=== PATIENT | male | born 1955 | race Hispanic/Latino ===

== ENCOUNTER → 2018-10-09 | Outpatient (CLI) | payer OTHER ==
[~2018-10-09] MED LIST: CETI10CA5 PO; IBUP-2070 PO; OMEP20TA25 PO; REGADENOSON 0.4 MG/5 ML PF SYG IVP SCH
== END | disposition home or self-care (01) ==
LOC: SHCH 09:31
PROVIDERS: ATTEND Internal Medicine Cardiovascular Disease
DX: R07.9 Chest pain, unspecified (principal)
CPT/HCPCS: 78452; 93017; 96374; A9500 ×2; J2785

== ENCOUNTER 2020-12-31 17:09 | Observation (INO) | payer OTHER ==
[~2020-12-31] VITALS: Ht 172.7 cm; Wt 85.8 kg
[~2020-12-31 17:09] MED LIST changes: -DIATR MEGLU/DIATRIZOATE SODIUM 30 ML BOTTLE ONE; -IOHEXOL-350 75 ML VIAL IV ONE; -PRAV10TA39 PO; -TRAZ-253 PO
[2020-12-31 17:11] VITALS: BP 105/66
[2020-12-31] MEDS ORDERED: ZOSYN 3.375GM +NS 50ML IV ONE (18:15)
[2020-12-31] MEDS ORDERED: ONDANSETRON 4MG INJ IVP ONE (18:15)
[2020-12-31 18:22] LABS: APPEARANCE,URINE Clear (CLEAR); BILIRUBIN,URINE Negative (NEGATIVE); COLOR,URINE Yellow (YELLOW); GLUCOSE, URINE (UA) Negative (NEGATIVE); KETONES,URINE Negative (NEGATIVE); LEUKOCYTE ESTERASE ,URINE Negative (NEGATIVE); NITRATE,URINE Negative (NEGATIVE); OCCULT BLOOD,URINE Negative (NEGATIVE); PH,URINE 7.5 (5.0-8.0); PROTEIN,URINE Negative (NEGATIVE); UROBILINOGEN,URINE 0.2 mg/dL (0.2-1.0)
[2020-12-31 18:32] VITALS: BP 127/68
[2020-12-31] MEDS ORDERED: 0.9%NACL 50ML 50 ML IV ONE (18:35)
[2020-12-31] MEDS ORDERED: MORPHINE 4 MG SYG IV ONE (18:45)
[2020-12-31] MEDS ORDERED: ACETAMINOPHEN 325 MG TAB PO PRN ×2 (19:30)
[2020-12-31] MEDS ORDERED: ONDANSETRON 4MG INJ IV PRN (19:30)
[2020-12-31] MEDS ORDERED: NITROGLYCERIN 0.4 MG SL TAB SL PRN (19:30)
[2020-12-31 19:35] LABS: PROTHROMBIN TIME 10.9 SEC (9.6-11.6)
[2020-12-31 19:37] LABS: PARTIAL THROMBOPLASTIN TIME 28.5 SEC (26.3-35.5)
[2020-12-31] MEDS ORDERED: 0.9%NACL 1000ML 1,000 ML IV ONE (20:10)
[2020-12-31] MEDS: 0.9%NACL 1000ML 1,000 ML IV SCH (20:11)
[2020-12-31 20:20] LABS: BASOPHILS % (AUTO) 0.2 % (0.0-5.0); EOSINOPHILS % (AUTO) 0.7 % (0.0-8.0); HEMATOCRIT 43.1 % (42-54); LYMPHOCYTES % (AUTO) 13.3 % (21.0-51.0); MEAN CORPUSCULAR HEMOGLOBIN 32.5 pg (27.0-33.0); MEAN CORPUSCULAR HGB CONC 33.6 g/dL (32.0-36.0); MEAN CORPUSCULAR VOLUME 96.6 fL (79-99); MONOCYTES % (AUTO) 7.1 % (3.0-13.0); NEUTROPHILS % (AUTO) 78.4 % (40.0-77.0); PLATELET COUNT (AUTO) 161 K/uL (130-400); RED BLOOD CELL COUNT(AUTO) 4.46 MIL/uL (4.50-6.20); RED CELL DISTRIBUTION WIDTH 12.9 % (11.0-15.5)
[2020-12-31 20:23] VITALS: BP 124/70
[2020-12-31 20:30] LABS: CREATININE 0.9 mg/dL (0.5-1.5); POTASSIUM 3.8 mmol/L (3.5-5.1)
[2020-12-31 20:35] LABS: ALBUMIN 3.9 g/dL (3.5-5.0); BILIRUBIN,TOTAL 1.5 mg/dL (0.2-1.0); TOTAL PROTEIN, SERUM 7.6 g/dL (6.0-8.3)
[2020-12-31] MEDS ORDERED: CEFTRIAXONE 1G VIAL IVP ONE (21:15)
[2020-12-31] MEDS: FAMOTIDINE 20MG VIAL IV SCH (21:41)
[2020-12-31] MEDS ORDERED: METRONIDAZOLE 500MG/100ML BAG 100 ML IVPB ONE (22:00)
[2020-12-31 22:19] VITALS: BP 135/72
[2021-01-01] VITALS (28 sets, daily range): BP systolic 110–157; BP diastolic 48–73
[2021-01-01] MEDS ORDERED: PRAV10TA39 PO (01:23)
[2021-01-01] MEDS ORDERED: TRAZ-253 PO (01:23)
[2021-01-01] MEDS: MORPHINE 2 MG SYG IVP PRN ×2 (03:50→19:53)
[2021-01-01 04:01] LABS: BASOPHILS % (AUTO) 0.4 % (0.0-5.0); EOSINOPHILS % (AUTO) 1.7 % (0.0-8.0); HEMATOCRIT 38.8 % (42-54); LYMPHOCYTES % (AUTO) 19.4 % (21.0-51.0); MEAN CORPUSCULAR HEMOGLOBIN 32.3 pg (27.0-33.0); MEAN CORPUSCULAR VOLUME 94.9 fL (79-99); MONOCYTES % (AUTO) 8.7 % (3.0-13.0); NEUTROPHILS % (AUTO) 69.4 % (40.0-77.0); PLATELET COUNT (AUTO) 136 K/uL (130-400); RED BLOOD CELL COUNT(AUTO) 4.09 MIL/uL (4.50-6.20); RED CELL DISTRIBUTION WIDTH 12.8 % (11.0-15.5); WHITE BLOOD COUNT (AUTO) 7.1 K/uL (4.8-10.8)
[2021-01-01 04:14] LABS: ALBUMIN 3.3 g/dL (3.5-5.0); MAGNESIUM 2.1 mg/dL (1.80-2.40); TOTAL PROTEIN, SERUM 6.5 g/dL (6.0-8.3)
[2021-01-01] MEDS: 0.9%NACL 1000ML 1,000 ML IV SCH ×2 (05:30→19:53)
[2021-01-01] MEDS: FAMOTIDINE 20MG VIAL IV SCH ×2 (08:50→19:53)
[2021-01-01] MEDS: CETIRIZINE HCL 5 MG TABLET PO SCH (08:50)
[2021-01-01] MEDS ORDERED: LIDOCAINE PF 100MG/5ML (2%) SYRINGE 5ML ONE (09:06)
[2021-01-01] MEDS ORDERED: SUCCINYLCHOLINE CHLORIDE 20 MG/ML 10 ML VIAL ONE (09:06)
[2021-01-01] MEDS ORDERED: FENTANYL CITRATE PF 50 MCG/1 ML 2ML VIAL ONE (09:07)
[2021-01-01] MEDS ORDERED: PROPOFOL 10 MG/ML 20ML VIAL IV ONE (09:07)
[2021-01-01] MEDS ORDERED: ROCURONIUM 10MG/1ML SYR 10 MG/ML ML ONE (09:07)
[2021-01-01] MEDS ORDERED: LACTATED RINGERS 1000ML 1,000 ML IV ONE (09:26)
[2021-01-01] MEDS ORDERED: CEFAZOLIN SODIUM 1 GM VIAL ONE (09:29)
[2021-01-01] MEDS ORDERED: BUPIVACAINE/EPI/PF 0.25% 30ML VIAL IJ ONE (09:29)
[2021-01-01] MEDS ORDERED: BUPIVACAINE/PF 0.25% 30ML VIAL IJ ONE (09:31)
[2021-01-01] MEDS ORDERED: LIDOCAINE 1%-EPI 1:100,000 20 ML VIAL IJ ONE (09:31)
[2021-01-01] MEDS ORDERED: ZOSYN 3.375GM+NS 50ML 50 ML IV ONE (09:37)
[2021-01-01] MEDS ORDERED: MIDAZOLAM HCL 1 MG/ML 2ML VIAL ONE (09:42)
[2021-01-01] MEDS ORDERED: 0.9%NACL 50ML IV SCH (09:45)
[2021-01-01] MEDS: PIP/TAZ ZOSYN 3.375G 3.375 GM VIAL IVPB SCH ×2 (09:50→09:55)
[2021-01-01] MEDS ORDERED: KETOROLAC 30MG VIAL (30MG/ML) ONE (10:25)
[2021-01-01] MEDS ORDERED: NEOSTIGMINE 5MG/5ML SYR IV ONE (10:25)
[2021-01-01] MEDS ORDERED: GLYCOPYRROLATE 1 MG/5 ML SYRINGE ONE (10:25)
[2021-01-01] MEDS ORDERED: MEPERIDINE-PF 25 MG/ML SYG ONE (10:40)
[2021-01-01] MEDS ORDERED: ONDANSETRON 4MG INJ ONE (10:40)
[2021-01-01] MEDS: CEFTRIAXONE 1G VIAL IVP SCH (12:04)
[2021-01-01] MEDS ORDERED: OXYCODONE/ACETAMIN 5/325MG TAB PO PRN ×2 (15:00)
[2021-01-01] MEDS ORDERED: 0.9%NACL 50ML 50 ML IV SCH (15:00)
[2021-01-01 20:47] LABS: APPEARANCE,URINE Clear (CLEAR); BILIRUBIN,URINE Negative (NEGATIVE); COLOR,URINE Yellow (YELLOW); GLUCOSE, URINE (UA) Negative (NEGATIVE); KETONES,URINE Trace mg/dL (NEGATIVE); LEUKOCYTE ESTERASE ,URINE Negative (NEGATIVE); NITRATE,URINE Negative (NEGATIVE); OCCULT BLOOD,URINE Negative (NEGATIVE); PH,URINE 5.5 (5.0-8.0); PROTEIN,URINE Negative (NEGATIVE)
[2021-01-01] MEDS ORDERED: SIMVASTATIN 10 MG TABLET PO SCH (21:00)
[2021-01-01] MEDS: 0.9%NACL 50ML 50 ML IV SCH (22:12)
[2021-01-01] MEDS: ZOSYN 3.375GM +NS 50ML IV SCH (22:12)
[2021-01-02 03:55] VITALS: BP 111/62
[2021-01-02 04:31] LABS: BASOPHILS % (AUTO) 0.3 % (0.0-5.0); EOSINOPHILS % (AUTO) 2.9 % (0.0-8.0); HEMATOCRIT 37.3 % (42-54); LYMPHOCYTES % (AUTO) 19.2 % (21.0-51.0); MEAN CORPUSCULAR HEMOGLOBIN 32.7 pg (27.0-33.0); MEAN CORPUSCULAR HGB CONC 33.2 g/dL (32.0-36.0); MEAN CORPUSCULAR VOLUME 98.4 fL (79-99); MONOCYTES % (AUTO) 8.1 % (3.0-13.0); NEUTROPHILS % (AUTO) 69.1 % (40.0-77.0); PLATELET COUNT (AUTO) 135 K/uL (130-400); RED BLOOD CELL COUNT(AUTO) 3.79 MIL/uL (4.50-6.20); RED CELL DISTRIBUTION WIDTH 12.9 % (11.0-15.5); WHITE BLOOD COUNT (AUTO) 7.3 K/uL (4.8-10.8)
[2021-01-02] MEDS: 0.9%NACL 50ML 50 ML IV SCH (05:26)
[2021-01-02] MEDS: ZOSYN 3.375GM +NS 50ML IV SCH (05:26)
[2021-01-02] MEDS: 0.9%NACL 1000ML 1,000 ML IV SCH (05:26)
[2021-01-02 08:26] VITALS: BP 137/69
[2021-01-02] MEDS: CETIRIZINE HCL 5 MG TABLET PO SCH (08:54)
[2021-01-02] MEDS: FAMOTIDINE 20MG VIAL IV SCH (08:54)
[2021-01-02] MEDS: CEFTRIAXONE 1G VIAL IVP SCH (08:54)
== END 2021-01-02 11:00 | disposition home or self-care (01) ==
LOC: EDH 17:09 → EDHIP 18:55 → INTOOBSV 18:55 → 4BH 01-01 01:16
PROVIDERS: ADMIT Internal Medicine; ATTEND Internal Medicine
DX: K35.80 Unspecified acute appendicitis (principal); J44.9 Chronic obstructive pulmonary disease, unspecified; E78.5 Hyperlipidemia, unspecified; Z82.0 Family history of epilepsy and other diseases of the nervous system; Z82.3 Family history of stroke; Z82.49 Family history of ischemic heart disease and other diseases of the circulatory system; Z82.5 Family history of asthma and other chronic lower respiratory diseases; Z83.3 Family history of diabetes mellitus; Z96.652 Presence of left artificial knee joint
CPT/HCPCS: 36415 ×4; 44970; 71045; 74177; 80048; 80053 ×3; 81003 ×2; 83735; 84484; 85025 ×4; 85610; 85730; 87040 ×2; 87635; 93005 ×2; 96361 ×2; 96365; 96366 ×4; 96367; 96375; 96376 ×3; 99285; A4216; A4222; A4223; A4344; A4649 ×5; C1769 ×3; G0378 ×37; J0330; J0690; J0696 ×3; J1885; J2001; J2175; J2250; J2270; J2405 ×3; J2543 ×4; J2704; J2710; J3010; J3490 ×8; J7030 ×4; J7120 ×2; Q9963; Q9967

== ENCOUNTER → 2020-12-31 | Outpatient (CLI) | payer OTHER ==
[~2020-12-31] MED LIST changes: +DIATR MEGLU/DIATRIZOATE SODIUM 30 ML BOTTLE ONE; +IOHEXOL-350 75 ML VIAL IV ONE; +PRAV10TA39 PO; -REGADENOSON 0.4 MG/5 ML PF SYG IVP SCH; +TRAZ-253 PO
[2020-12-31 13:54] LABS: BASOPHILS % (AUTO) 0.2 % (0.0-5.0); EOSINOPHILS % (AUTO) 0.5 % (0.0-8.0); HEMATOCRIT 44.5 % (42-54); LYMPHOCYTES % (AUTO) 9.7 % (21.0-51.0); MEAN CORPUSCULAR HEMOGLOBIN 32.9 pg (27.0-33.0); MEAN CORPUSCULAR HGB CONC 33.9 g/dL (32.0-36.0); MEAN CORPUSCULAR VOLUME 96.9 fL (79-99); MONOCYTES % (AUTO) 7.5 % (3.0-13.0); NEUTROPHILS % (AUTO) 81.8 % (40.0-77.0); PLATELET COUNT (AUTO) 161 K/uL (130-400); RED BLOOD CELL COUNT(AUTO) 4.59 MIL/uL (4.50-6.20); RED CELL DISTRIBUTION WIDTH 12.8 % (11.0-15.5); WHITE BLOOD COUNT (AUTO) 11.1 K/uL (4.8-10.8)
[2020-12-31 14:08] LABS: ALBUMIN 4.2 g/dL (3.5-5.0); POTASSIUM 4.7 mmol/L (3.5-5.1); TOTAL PROTEIN, SERUM 7.7 g/dL (6.0-8.3)
== END | disposition home or self-care (01) ==
LOC: RAH 12:56
PROVIDERS: ATTEND Internal Medicine
DX: K21.9 Gastro-esophageal reflux disease without esophagitis (principal); R73.01 Impaired fasting glucose; E78.00 Pure hypercholesterolemia, unspecified; Z00.00 Encounter for general adult medical examination without abnormal findings
CPT/HCPCS: 36415; 74177; 80053; 85025; Q9963; Q9967

== ENCOUNTER 2022-12-05 15:20 | Emergency (ER) | payer OTHER ==
[~2022-12-05] VITALS: Ht 172.7 cm; Wt 95.3 kg
[~2022-12-05 15:20] MED LIST changes: +OMEP20TA20 PO; -OMEP20TA25 PO; +PRAV10TA39 PO; +TRAZ-253 PO
[2022-12-05 15:23] VITALS: BP 149/86
[2022-12-05 15:58] LABS: BASOPHILS % (AUTO) 0.2 % (0.0-5.0); EOSINOPHILS % (AUTO) 0.7 % (0.0-8.0); HEMATOCRIT 42.5 % (42-54); LYMPHOCYTES % (AUTO) 9.1 % (21.0-51.0); MEAN CORPUSCULAR HEMOGLOBIN 32.8 pg (27.0-33.0); MEAN CORPUSCULAR HGB CONC 35.1 g/dL (32.0-36.0); MEAN CORPUSCULAR VOLUME 93.6 fL (79-99); NEUTROPHILS % (AUTO) 82.4 % (40.0-77.0); PLATELET COUNT (AUTO) 185 K/uL (130-400); RED BLOOD CELL COUNT(AUTO) 4.54 MIL/uL (4.50-6.20); WHITE BLOOD COUNT (AUTO) 11.1 K/uL (4.8-10.8)
[2022-12-05 16:01] LABS: APPEARANCE,URINE CLEAR (CLEAR); BILIRUBIN,URINE NEGATIVE (NEGATIVE); COLOR,URINE LIGHT-YELLOW (YELLOW); GLUCOSE, URINE (UA) NEGATIVE (NEGATIVE); KETONES,URINE 20 mg/dL (NEGATIVE); LEUKOCYTE ESTERASE ,URINE NEGATIVE Leu/uL (NEGATIVE); NITRATE,URINE NEGATIVE (NEGATIVE); OCCULT BLOOD,URINE NEGATIVE (NEGATIVE); PROTEIN,URINE NEGATIVE (NEGATIVE); UROBILINOGEN,URINE 0.2 mg/dL (0.2-1.0)
[2022-12-05 16:07] LABS: CREATININE 1.6 mg/dL (0.5-1.5); POTASSIUM 4.5 mmol/L (3.5-5.1)
[2022-12-05 16:14] LABS: ALBUMIN 4.1 g/dL (3.5-5.0); TOTAL PROTEIN, SERUM 7.8 g/dL (6.0-8.3)
[2022-12-05 16:15] LABS: MUCUS,URINE RARE LPF (None Seen)
[2022-12-05] MEDS ORDERED: KETOROLAC 15MG/ML VIAL (15MG/ML) IM ONE (18:30)
[2022-12-05] MEDS ORDERED: CEFTRIAXONE 1G VIAL ONE (19:37)
[2022-12-05] MEDS ORDERED: LIDOCAINE HCL 1% 20 ML VIAL ONE (19:38)
[2022-12-05] MEDS ORDERED: CEFTRIAXONE 1G VIAL IVPB ONE (20:00)
[2022-12-05] MEDS ORDERED: LIDOCAINE HCL 1% 20 ML VIAL INJ SCH (20:00)
[2022-12-05] MEDS ORDERED: CEPH500B PO (20:02)
[2022-12-05] MEDS ORDERED: TAMS-1 PO (20:02)
[2022-12-05] MEDS ORDERED: TAMSULOSIN HCL 0.4 MG CAP.ER.24H PO ONE (21:00)
== END 2022-12-05 20:37 | disposition home or self-care (01) ==
LOC: EDH 15:20
DX: N20.0 Calculus of kidney (principal); E78.00 Pure hypercholesterolemia, unspecified; Z79.899 Other long term (current) drug therapy; Z98.890 Other specified postprocedural states
CPT/HCPCS: 99285; 74176; 96374; 80053; 85025; 81001; 36415; 93005; 96372; J0696; J1885

== ENCOUNTER → 2024-01-30 | Outpatient (CLI) | payer OTHER ==
[~2024-01-30] MED LIST changes: +CEPH500B PO; +TAMS-1 PO
== END | disposition home or self-care (01) ==
LOC: RAH 09:33
PROVIDERS: ATTEND Clinical Nurse Specialist Family Health
DX: M47.22 Other spondylosis with radiculopathy, cervical region (principal); M54.2 Cervicalgia
CPT/HCPCS: 72040

== ENCOUNTER 2024-04-17 02:09 | Emergency (ER) | payer OTHER ==
[2024-04-17 02:45] LABS: RAPID GROUP A STREP negative (NEGATIVE)
[2024-04-17 02:51] LABS: SARS-CoV-2, RNA, NAAT NEGATIVE SARS CoV-2 (NEGATIVE)
[2024-04-17 02:52] LABS: BASOPHILS # (AUTO) 0.01 K/uL (0.00-0.20); BASOPHILS % (AUTO) 0.2 % (0.0-5.0); EOSINOPHILS # (AUTO) 0.17 K/uL (0.00-0.70); EOSINOPHILS % (AUTO) 3.8 % (0.0-8.0); HEMATOCRIT 37.7 % (42-54); IMMATURE GRANULOCYTE ABSOLUTE 0.01 K/uL (0-1); LYMPHOCYTES % (AUTO) 22.8 % (21.0-51.0); MEAN CORPUSCULAR HEMOGLOBIN 33.1 pg (27.0-33.0); MEAN CORPUSCULAR VOLUME 94.5 fL (79-99); MONOCYTES # (AUTO) 0.3 K/uL (0.1-1.0); MONOCYTES % (AUTO) 6.9 % (3.0-13.0); NEUTROPHILS % (AUTO) 66.1 % (40.0-77.0); PLATELET COUNT (AUTO) 143 K/uL (130-400); RED BLOOD CELL COUNT(AUTO) 3.99 MIL/uL (4.50-6.20); RED CELL DISTRIBUTION WIDTH 12.2 % (11.0-15.5); WHITE BLOOD COUNT (AUTO) 4.5 K/uL (4.8-10.8)
[2024-04-17 02:55] LABS: INFLUENZA TYPE A Negative For Type A (NEGATIVE); INFLUENZA TYPE B Negative For Type B (NEGATIVE)
[2024-04-17 02:59] LABS: CREATININE 0.9 mg/dL (0.5-1.3); POTASSIUM 4.5 mmol/L (3.5-5.1)
[2024-04-17] MEDS: 0.9%NACL 1000ML 1,000 ML IV ONE (04:33)
[2024-04-17] MEDS: mecliZINE HCL 25 MG TABLET PO ONE (06:02)
[2024-04-17] MEDS: mecliZINE HCL 25 MG TABLET ONE (06:25)
[2024-04-17 07:03] LABS: APPEARANCE,URINE CLEAR (CLEAR); BILIRUBIN,URINE NEGATIVE (NEGATIVE); COLOR,URINE YELLOW (YELLOW); GLUCOSE, URINE (UA) NEGATIVE (NEGATIVE); KETONES,URINE NEGATIVE (NEGATIVE); LEUKOCYTE ESTERASE ,URINE NEGATIVE Leu/uL (NEGATIVE); NITRATE,URINE NEGATIVE (NEGATIVE); OCCULT BLOOD,URINE NEGATIVE (NEGATIVE); PROTEIN,URINE 10 mg/dL (NEGATIVE); UROBILINOGEN,URINE 0.2 mg/dL (0.2-1.0)
[2024-04-17 07:08] VITALS: BP 149/77; PULSE 70; RESP 16; TEMP 97.2; O2SAT 96
[2024-04-17 07:08] LABS: AMPHET/METH SCREEN,URINE NEGATIVE (NEGATIVE); BARBITURATE SCREEN, URINE NEGATIVE (NEGATIVE); BENZODIAZEPINES SCREEN,URINE NEGATIVE (NEGATIVE); CANNABINOID SCREEN,URINE POSITIVE (NEGATIVE); COCAINE SCREEN,URINE NEGATIVE (NEGATIVE); OPIATE SCREEN,URINE NEGATIVE (NEGATIVE); PHENCYCLIDINE SCREEN,URINE NEGATIVE (NEGATIVE)
[2024-04-17 07:12] LABS: MUCUS,URINE RARE LPF (None Seen); RBC,URINE 0-1 /HPF (0-1); SQUAMOUS EPITHELIAL CELL,UR RARE /HPF (0-2); WBC,URINE 0-1 /HPF (0-1)
== END 2024-04-17 07:09 | disposition home or self-care (01) ==
LOC: EDH 02:09
DX: F12.10 Cannabis abuse, uncomplicated (principal); E78.00 Pure hypercholesterolemia, unspecified; Z79.899 Other long term (current) drug therapy; Z20.822 Contact with and (suspected) exposure to COVID-19; Z98.890 Other specified postprocedural states
CPT/HCPCS: 99284; 87635; 84484; 80048; 80305; 85025; 87880; 87804 ×2; 36415; 93005; 81001; J7030